=== PATIENT | female | born 1985 | race Caucasian/White ===

== ENCOUNTER 2018-09-15 22:11 | Observation (INO) | payer SELFPAY ==
[2018-09-15 23:13] LABS: Hemoglobin 6.8 g/dL (12.0-16.0); Mean Corpuscular HGB CONC 29.2 g/dL (32.0-36.0); Mean Corpuscular Hemoglobin 17.5 pg (27.0-31.0); Mean Platelet Volume 6.1 fL (7.4-10.4); Platelet Count 357 thou/uL (130-400); RBC Distribution Width 19.3 % (11.5-14.5); Red Blood Cell (RBC) Count 3.88 mill/uL (4.20-5.40); White Blood Cell (WBC) Count 6.5 thou/uL (4.8-10.8)
[2018-09-15 23:35] LABS: #Eosinphils 0.1 thou/uL (0.0-0.7); #Lymphocytes 2.2 thou/uL (1.20-3.40); #Monocytes 0.3 thou/uL (0.11-0.59); #Neutrophils 3.9 thou/uL (1.40-6.50); %Basophils 0.2 % (0.0-1.0); %Eosinophils 1.5 % (0.0-10.0); %Lymphocytes 33.1 % (21.0-51.0); %Monocytes 4.6 % (0.0-10.0); %Neutrophils 60.6 % (42.0-75.0); Anisocytosis MODERATE=16-30 cells (100X) (0-5/hpf); Elliptocytes SLIGHT = 2-5 cells (100X) (0-1/hpf); Hypochromia SLIGHT = 6-15 cells (100X) (0-5/hpf); MDiff Complete? YES; Microcytosis MODERATE=15-30 cells (100X) (0-5/hpf)
[2018-09-16] MEDS: Acetaminophen 325 MG TAB PO PRN ×2 (02:10→22:01)
[2018-09-16 02:17] LABS: ALT (SGPT) 19 U/L (8-55); AST (SGOT) 18 U/L (5-34); Albumin 4.2 g/dL (3.5-5.0); Alkaline Phosphatase 81 U/L (40-150); Anion Gap 11 mmol/L (10-20); BUN (Urea Nitrogen) 9 mg/dL (7.0-18.7); Bilirubin, Total 0.5 mg/dL (0.2-1.2); Calc. Creatinine Clearance 0 mL/min (70-130); Calcium 9.1 mg/dL (7.8-10.44); Carbon Dioxide 24 mmol/L (22-29); Chloride 109 mmol/L (98-107); Estimated GFR-MDRD Greater than 90; Globulin 2.9 g/dL (2.4-3.5); Glucose 113 mg/dL (70-105); Potassium 3.8 mmol/L (3.5-5.1); Protein, Total 7.1 g/dL (6.0-8.3); Sodium 140 mmol/L (136-145)
[2018-09-16 02:40] VITALS: BMI 25.4
[2018-09-16] MEDS ORDERED: Loperamide HCl 2 MG CAP PO PRN (09:24)
[2018-09-16] MEDS ORDERED: Ondansetron PF 4 MG/2 ML Vial IVP PRN (09:24)
[2018-09-16] MEDS ORDERED: Bisacodyl 10 MG SUPP PR PRN (09:24)
--- NOTE | 2018-09-16 12:34 | PDOC.EVN ---
Event Note - Event Note Event Note: H&P #[id number]
[2018-09-16] MEDS ORDERED: Iron, Sodium Ferric Gluconate 250 MG in Sodium Chloride 0.9% 100 ML IVPB SCH (12:45)
--- NOTE | 2018-09-16 16:07 | HP ---
ADMITTING DIAGNOSES: Menorrhagia, anemia, weakness, uterine fibroids. CHIEF COMPLAINT: Weakness. HISTORY OF PRESENT ILLNESS: This is a 33-year-old female with significant history of menorrhagia as well as uterine fibroids, coming in with severe significant weakness. The patient had evaluation done in the ER and was found to have a hemoglobin of 6.8 with a mean corpuscular volume of 60, significantly low, was advised to stay in the hospital for observation, was admitted to Internal Medicine Team. The patient states currently she has no complaints or issues. She does have heavy flow periods. Otherwise, no other issues or complaints. 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 At the point in time of evaluation, the patient does not have any complaints. No nausea, vomiting, diarrhea, constipation, chest pain, fevers, or shortness of breath. Condition is stable. Prognosis good. The patient is seen and examined in the room. No family at bedside. All questions answered. ALLERGIES: NO KNOWN DRUG ALLERGIES. HOME MEDICATIONS: See MAR. PAST MEDICAL HISTORY: Positive for hypertension as well as menorrhagia, anemia, significant amounts of blood transfusion, and uterine fibroids. SOCIAL HISTORY: Social drinker and smoker, last smoked about 2 weeks ago, last drink was about 2 weeks ago. PHYSICAL EXAMINATION: VITAL SIGNS: Blood pressure is 112/63, heart rate of 71, respiratory rate of 18, temperature of 98.3, O2 saturation 95% on room air. GENERAL: The patient is lying in bed, in no acute distress. No discomfort. HEENT: Pupils are equal, round, and reactive to light and accommodation. Extraocular muscles are intact. Oral cavity, moist and pink. NECK: Supple, mobile, nontender. Thyroid appreciated. LUNGS: Clear to auscultation bilaterally. CARDIOVASCULAR: Regular rate and rhythm. No murmurs. No rubs or gallops. S1 and S2. ABDOMEN: Positive bowel sounds. Soft, nontender, nondistended. No rebound or guarding. EXTREMITIES: 2+ peripheral pulses bilaterally with trace pitting edema. LABORATORY DATA: Reviewed. IMAGES: Reviewed. ASSESSMENT: 1. Weakness. 2. Anemia due to heavy bleeding from uterine fibroids. 3. Hypertension. PLAN: At this point in time, we will admit the patient to Internal Medicine Team. Consult done to the MANAGER MAC services. We will provide the patient IV iron. Repeat labs in the morning. She will likely need either hysterectomy in the long run or control for further management and care. Case plan discussed with the patient at length. She understood and agreed with this plan. Job ID: [id number]
--- NOTE | 2018-09-16 21:41 | CON ---
DATE OF CONSULTATION: 09/16/2018 CHIEF COMPLAINT: Symptomatic anemia with history of menorrhagia. HISTORY OF PRESENT ILLNESS: The patient is a 33-year-old female who was sent from [facility] to the emergency room after noting a hemoglobin in the 6's. Upon arrival to the emergency room, the patient was noted to have a hemoglobin of 6.8 and symptomatic with dizziness, lightheadedness, fatigue, and was admitted to the Medicine Team for blood transfusion. THERAPEUTIC RECREATION ASSISTANT was consulted to address her history of menorrhagia, which was likely the reason for her symptomatic anemia. At the time of evaluation, the patient reported recent history of shortness of breath, dizziness, lightheadedness, fatigue, and weakness. She reports about a 2-year history of heavy periods, lasting 7 to 9 days, requiring multiple boxes of tampons and pads. The patient reports her last period was about 2 weeks ago. She reports that she has had control of her heavy periods with a Mirena IUD, which she had for 8 years and also for a period of 6 months while she was in correction last year on control pills. The patient reports that she has had a blood transfusion about every 3 to 4 months for the last couple of years since removal of the IUD. She was recommended having it replaced; however, she at that time declined. The patient also reports that she has been told that she has uterine fibroids, but is unable to give any more information. She also report history of adenomyosis. The patient reports history of constipation, hair loss. ALLERGIES: NO KNOWN DRUG ALLERGIES. MEDICATIONS: 1. Claritin. 2. Ibuprofen. PAST MEDICAL HISTORY: Menorrhagia, anemia, adenomyosis, uterine fibroids, and restless legs syndrome. SOCIAL HISTORY: Positive for alcohol and tobacco use when she was not incarcerated. She also has a history of methamphetamine use with the most recent use on the 02 of September. PHYSICAL EXAMINATION: VITAL SIGNS: Blood pressure 96/64, temperature 98, pulse is 71, respiratory rate of 16, saturating 99% on room air. GENERAL: She appears to be in no acute distress. She is alert and oriented, cooperative and pleasant to interact with. HEAD: Normocephalic, atraumatic. LUNGS: Clear to auscultation bilaterally. HEART: Regular rate and rhythm. ABDOMEN: Soft. EXTREMITIES: Nontender, nonedematous. LABORATORY DATA: White count 6.5, hemoglobin 6.8, MCV of 60, platelets of 357, 000. Sodium of 140, potassium of 3.8, chloride of 109, BUN of 9, creatinine of 0.64, glucose of 113, calcium of 9.1, AST of 18, ALT of 19. ASSESSMENT AND PLAN: The patient is a 33-year-old female with a longstanding history of menorrhagia and positive tobacco use and multiple transfusions for symptomatic anemia. The patient has a history of Mirena IUD use with good success in menstrual control and control pills. We did discuss with Ms. Coy that she has contraindications for estrogen-containing control with her history of smoking and her age. However, while she is incarcerated, the patient is off tobacco. The patient would benefit from control such as Sprintec. The patient is not having any bleeding at this time, but is likely to start her period in the next 10 days or so. I did speak to the [facility] doctor by phone earlier today and have written our recommendations for the plan of care. I recommended the patient be started on 800 mg of ibuprofen 3 times a day the moment she feels like her periods are about to start. Also recommend 1350 mg of TXA 3 times a day for the first 4 to 5 days of her period. Once her period lightens, then I would recommend that she get started on her control pills with the plan to only take the first 3 weeks and to discard the last week which are placebo pills generally and then to start a new pack. Once on the control pills, she may not require any other treatment with ibuprofen or TXA. Once the patient is discharged from [facility], or if the patient has long-term consequences requiring extended stay, she may benefit 4 more definitive cares should she have complications with her control pills. With the patient's history of adenomyosis, I would not recommend an endometrial ablation, but would recommend a hysterectomy. At this point, I will be signing off on the consultation. Orders have been sent to the [facility] by putting them on the chart and also by sending a copy with the senior software tester at the [facility] physician's request. I have ordered a TSH to evaluate for thyroid dysfunction in the event that this could be an underlying cause for many of the symptoms that she is experiencing. The patient denies any knowledge of thyroid testing before. We will follow up with this. If there are any abnormalities, I would defer to the Medicine Team for management. Job ID: [id number] MTDD
[2018-09-16] MEDS ORDERED: Melatonin 3 MG TAB PO PRN (23:22)
[2018-09-17 05:15] LABS: Anion Gap 10 mmol/L (10-20); BUN (Urea Nitrogen) 13 mg/dL (7.0-18.7); Calc. Creatinine Clearance 122 mL/min (70-130); Calcium 9.1 mg/dL (7.8-10.44); Carbon Dioxide 26 mmol/L (22-29); Chloride 107 mmol/L (98-107); Estimated GFR-MDRD Greater than 90; Glucose 101 mg/dL (70-105); Iron 325 ug/dL (50-170); Iron Binding Capacity, Total 353 mcg/dL (265-497); Potassium 3.9 mmol/L (3.5-5.1); Sodium 139 mmol/L (136-145)
[2018-09-17 06:20] LABS: #Basophils 0.1 thou/uL (0.0-0.2); #Eosinphils 0.1 thou/uL (0.0-0.7); #Lymphocytes 2.1 thou/uL (1.20-3.40); #Monocytes 0.5 thou/uL (0.11-0.59); #Neutrophils 4.4 thou/uL (1.40-6.50); %Basophils 0.9 % (0.0-1.0); %Eosinophils 1.5 % (0.0-10.0); %Monocytes 7.5 % (0.0-10.0); %Neutrophils 61.1 % (42.0-75.0); Anisocytosis MODERATE=16-30 cells (100X) (0-5/hpf); Elliptocytes SLIGHT = 2-5 cells (100X) (0-1/hpf); Hemoglobin 9.4 g/dL (12.0-16.0); Hypochromia SLIGHT = 6-15 cells (100X) (0-5/hpf); MDiff Complete? YES; Mean Corpuscular HGB CONC 30.2 g/dL (32.0-36.0); Mean Corpuscular Volume 69.6 fL (78.0-98.0); Mean Platelet Volume 5.9 fL (7.4-10.4); Microcytosis SLIGHT = 6-15 cells (100X) (0-5/hpf); Platelet Count 316 thou/uL (130-400); Platelet Morphology Comment Appears Adequate; Polychromasia SLIGHT = 2-3 cells (100X) (0-2/hpf); RBC Distribution Width 25.3 % (11.5-14.5); Red Blood Cell (RBC) Count 4.48 mill/uL (4.20-5.40); White Blood Cell (WBC) Count 7.2 thou/uL (4.8-10.8)
[2018-09-17 08:15] VITALS: BP 101/68; TEMP 97.8
[2018-09-17] MEDS: Acetaminophen 325 MG TAB PO PRN (08:30)
[2018-09-17] MEDS ORDERED: Loratadine 10 MG TAB PO SCH (09:00)
--- NOTE | 2018-09-17 09:20 | PDOC.EVN ---
Event Note - Event Note Event Note: DC SUMMARY #[id number]
--- NOTE | 2018-09-17 09:37 | DIS ---
DATE OF ADMISSION: 09/16/2018 DATE OF DISCHARGE: 09/17/2018 ADMITTING DIAGNOSES: 1. Menorrhagia. 2. Anemia. 3. Weakness. 4. Fatigue. DISCHARGE DIAGNOSES: 1. Menorrhagia. 2. Anemia. 3. Weakness. 4. Fatigue. 5. Anemia, hemoglobin stabilized. HOSPITAL COURSE: This is a 33-year-old female, who was admitted to Internal Medicine Team due to menorrhagia as well as anemia. The patient was found to have a hemoglobin of 6.8, was given blood transfusion. Case was discussed with LACE CUTTER as well. Given that she has uterine fibroids and significant heavy bleeding. The patient was advised to follow up with LACE CUTTER in 2 to 3 days for further management and care as outpatient setting. The patient was given control prescriptions by the LACE CUTTER here in the hospital and advised to follow up as outpatient at a later date for possible scheduled hysterectomy. The patient was given our option. She understood and agreed with about late plan. The patient's condition upon time of discharge was stable, was advised to take [id number] iron tablets twice a day as well. DISPOSITION: Home. HOME MEDICATIONS: See MAR. ACTIVITY: As tolerated with assistance as needed. DIET: Low-fat, low-calorie, and high-fiber diet. CONDITION: Stable. PROGNOSIS: Good. Once again, case and plan discussed with the patient at length. She understood and agreed to this plan. Job ID: [id number]
== END 2018-09-17 11:14 ==
LOC: ERS 22:11 → SURG A 09-16 00:22
PROVIDERS: ADMIT Hospitalist; ATTEND Hospitalist
DX: N92.0 Excessive and frequent menstruation with regular cycle (principal); D64.9 Anemia, unspecified; R53.1 Weakness; R53.83 Other fatigue; D25.9 Leiomyoma of uterus, unspecified; I10 Essential (primary) hypertension; F41.9 Anxiety disorder, unspecified; F32.9 Major depressive disorder, single episode, unspecified; G25.81 Restless legs syndrome; F17.210 Nicotine dependence, cigarettes, uncomplicated; Z79.1 Long term (current) use of non-steroidal anti-inflammatories (NSAID); Z79.899 Other long term (current) drug therapy
CPT/HCPCS: 36415; 36430; 80048; 80053; 82728; 83540; 83550; 84443; 85025; 86850; 86870; 86880; 86900; 86901; 86905; 86922; 96365; 96366; 99285; G0378; J2916; J3490; P9016